=== PATIENT | female | born 1935 | race Caucasian/White ===

== ENCOUNTER 2017-07-15 13:03 | Emergency (ER) | payer BC, MEDICARE ==
[2017-07-15 13:40] LABS: BASO % 0.1 % (0-6); EOS % 2.8 % (0-6); GRAN % 80.2 % (47-80); HEMATOCRIT 39.3 % (35.0-47.0); HEMOGLOBIN 12.3 gm/dl (11.6-16.0); MEAN CELL VOLUME 92.9 fl (81-97); MEAN CORPUSCULAR HEMOGLOBIN 29.1 pg (27-33); MEAN CORPUSCULAR HGB CONC 31.3 g/dl (32-36); MEAN PLATELET VOLUME 10.9 fl (7.4-10.4); MONO % 6.9 % (0-9); PLATELET COUNT 229 K/uL (130-400); RED BLOOD COUNT 4.23 M/uL (3.80-5.40); RED CELL DISTRIBUTION WIDTH 14.6 % (11.5-14.5); WHITE BLOOD COUNT W/O DIFF 7.6 K/uL (4.2-12.2)
--- NOTE | 2017-07-15 13:42 | Emergency Department Record ---
History of Present Illness - General Chief Complaint: Shortness of breath Stated Complaint: JUAN M Time Seen by Provider: 07/15/17 13:16 Source: Patient Mode of Arrival: Wheelchair Limitations: No limitations - History of Present Illness Initial Comments: The patient is here due to JUAN M and SOB for one day. She did have about an hour of mild CP last night but no sweating, nausea or lightheadedness. The patient has an extensive cardiac hx and also of renal failure and is on home PD. She states she recently had a doctor appointment and was told her potassium was very low. MD Complaint: Shortness of breath Onset/Timin -: Days(s) Improves With: Nothing Worsens With: Nothing Associated Symptoms: Cough, Orthopnia Treatments Prior to Arrival: Oxygen - Related Data Home Oxygen Therapy: Yes Home Oxygen Amount: 2 Liters Home Medications Medication Instructions Recorded Confirmed Last Taken Furosemide [Lasix] 40 mg PO DAILY 07/15/17 07/15/17 Unknown Allergies Allergy/AdvReac Type Severity Reaction Status Date / Time No Known Drug Allergies Allergy Verified 07/15/17 13:15 Travel Screening - Travel/Exposure Within Last 30 Days Have you traveled within the last 30 days?: No Past Medical History - SOCIAL HISTORY Smoking Status: Former smoker Alcohol Use: None Drug Use: None - RESPIRATORY Hx Respiratory Disorders: No Comment:: wears home o2 for SOB - CARDIOVASCULAR Hx Cardio Disorders: Yes Hx Cardiac Cath: Yes Hx Heart Attack: Yes (mild [place] >10 years) Hx Hypertension: Yes Comment:: AAA, Cardiac Stent x3 - NEURO Hx Neuro Disorders: No - GI Hx GI Disorders: No Comment:: Galls stones - Hx Genitourinary Disorders: Yes Hx Dialysis: Yes (at home 4 times a day) - ENDOCRINE Hx Endocrine Disorders: No Hx Diabetes: No Hx Thyroid Disease: No - MUSCULOSKELETAL Hx Musculoskeletal Disorders: Yes Hx Arthritis: Yes - PSYCH Hx Psych Problems: No - HEMATOLOGY/ONCOLOGY Hx Hematology/Oncology Disorders: No Family Medical History Any Significant Family History?: Yes Hx Cancer: Children Hx HTN: Mother Hx Stroke: Grandparents Physical Exam - General General Appearance: Alert, Oriented x3, Cooperative, No acute distress - Head Head exam: Atraumatic, Normocephalic, Normal inspection - Eye Eye exam: Normal appearance, PERRL - ENT Throat exam: Normal inspection. negative: Tonsillar erythema, Tonsillar exudate - Neck Neck exam: Normal inspection, Full ROM. negative: Tenderness - Respiratory Respiratory exam: Normal lung sounds bilaterally. negative: Respiratory distress - Cardiovascular Cardiovascular Exam: Regular rate, Normal rhythm, Normal heart sounds - GI/Abdominal GI/Abdominal exam: Soft, Distended, Hypoactive bowel sounds. negative: Normal bowel sounds, Tenderness - Extremities Extremities exam: Normal inspection, Full ROM, Normal capillary refill. negative: Tenderness - Neurological Neurological exam: Alert. negative: Motor sensory deficit Course Vital Signs 07/15/17 13:08 Temperature 97.8 F Pulse Rate 114 H Respiratory 24 Rate Blood Pressure 163/113 Pulse Ox 94 L - Reevaluation(s) Reevaluation #1: The patient is doing very well at this time. She denies any JUAN M or Cp or SOB. 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 Due to that fact she would like to go to [facility] [place]. I did discuss the case with Dr. Vaca and he does accept the patient as a direct admit. 07/15/17 14:36 Medical Decision Making - Data Complexity MDM Data: Labs Ordered and/or Reviewed, X-Ray Ordered and/or Reviewed, EKG Ordered and/or Reviewed - Lab Data Result diagrams: 07/15/17 13:33 07/15/17 13:33 - EKG Data -: EKG Interpreted by Me EKG: No Acute Changes, Unchanged From Previous - Radiology Data Radiology results: Report reviewed (CXR: No acute changes, Old thoracic aneurysm.) Disposition Disposition: Transfer Clinical Impression: CHF (congestive heart failure) Qualifiers: Congestive heart failure type: unspecified Congestive heart failure chronicity : unspecified Qualified Code(s): I50.9 - Heart failure, unspecified Disposition: Acute Care Hospital Transfer Transfer To: [facility] [place] Reason For Transfer: Cardiology Accepting Physician: Lio Time Discussed w/Accepting Physician: 14:38 Condition: (2) Stable Forms: Patient Portal Access Time of Disposition: 14:38 Quality - Quality Measures Quality Measures: N/A - Blood Pressure Screening View Details: Yes Does Patient Have Any of the Following: Active Dx of HTN Blood Pressure Classification: Hypertensive Reading Systolic Measurement: 154 Diastolic Measurement: 95 Screening for High Blood Pressure: Patient Exclusion, Hx of HTN [G9744]
[2017-07-15 13:53] LABS: PARTIAL THROMBOPLASTIN TIME 26.8 SECONDS (24.5-39.1); PROTHROMBIN TIME (PATIENT) 11.2 SECONDS (9.5-12.1)
[2017-07-15 14:01] LABS: CREATININE 2.7 mg/dL (0.5-0.9)
[2017-07-15 14:10] LABS: CKMB 2.5 ng/mL (<3.77)
[2017-07-15] MEDS ORDERED: FUROSEMIDE IV 40MG/4ML VIAL IVP ONE (14:20)
[2017-07-15] MEDS ORDERED: ASPIRIN 325 MG TABLET PO ONE (14:52)
--- NOTE | 2017-07-16 07:36 | RADIOLOGY REPORT ---
EXAM: CHEST, TWO VIEWS HISTORY: DIFFICULTY IN BREATHING. TECHNIQUE: Frontal and lateral views of the chest were performed. FINDINGS: Left sided pacing device in place. There is aneurysmal dilatation of the thoracic aorta. No infiltrate or pleural effusion. IMPRESSION: 1. NO ACUTE PULMONARY DISEASE PROCESS. 2. FINDINGS SUGGESTIVE OF ANEURYSMAL DILATATION OF THE THORACIC AORTA. JOB NUMBER: [id number] MTDD
== END 2017-07-15 15:19 | disposition short-term general hospital (02) ==
LOC: ER 13:03
DX: I13.2 Hypertensive heart and chronic kidney disease with heart failure and with stage 5 chronic kidney disease, or end stage renal disease (principal); I50.9 Heart failure, unspecified; E87.70 Fluid overload, unspecified; N18.6 End stage renal disease; I25.2 Old myocardial infarction; Z99.2 Dependence on renal dialysis; Z87.891 Personal history of nicotine dependence
CPT/HCPCS: 71046; 80048; 82550; 82553; 83880; 84484; 85025; 85610; 85730; 93005; 93010; 96374; 99285; J1940

== ENCOUNTER 2017-11-11 12:29 | Emergency (ER) | payer BC ==
--- NOTE | 2017-11-11 13:07 | Emergency Department Record ---
History of Present Illness - General Chief Complaint: Difficulty Breathing Stated Complaint: JUAN M Time Seen by Provider: 11/11/17 12:57 Mode of Arrival: Wheelchair - History of Present Illness Initial Comments: patient slightly sob and on periteal dialysis was on 4 times a day and change to three times a day and now some edema of the legs and abd and slightly SOB. No chest pain Onset/Timin -: Days(s) Severity: Moderate Severity scale (1-10): 3 Quality: Aching - Related Data Home Oxygen Therapy: Yes (as needed) Allergies Allergy/AdvReac Type Severity Reaction Status Date / Time No Known Drug Allergies Allergy Verified 11/11/17 12:51 Travel Screening - Travel/Exposure Within Last 30 Days Have you traveled within the last 30 days?: No - Travel/Exposure Within Last Year Have you traveled outside the [place] in the last year?: No - Additonal Travel Details Have you been exposed to anyone with a communicable illness?: No - Travel Symptoms Symptom Screening: None Review of Systems Reviewed: No additional complaints except as noted below Constitutional: Reports: As per HPI. Denies: Chills, Fever, Malaise, Night sweats, Weakness, Weight change Eyes: Reports: As per HPI. Denies: Eye discharge, Eye pain, Photophobia, Vision change ENT: Reports: As per HPI. Denies: Congestion, Dental pain, Ear pain, Epistaxis , Hearing loss, Throat pain Respiratory: Reports: As per HPI. Denies: Cough, Dyspnea, Hemoptysis, Stridor, Wheezes Cardiovascular: Reports: As per HPI. Denies: Arrhythmia, Chest pain, Dyspnea on exertion, Edema, Murmurs, Orthopnea, Palpitations, Paroxysmal nocturnal dyspnea, Rheumatic Fever, Syncope Endocrine: Reports: As per HPI. Denies: Fatigue, Heat or cold intolerance, Polydipsia, Polyuria Gastrointestinal: Reports: As per HPI. Denies: Abdominal pain, Constipation, Diarrhea, Hematemesis, Hematochezia, Melena, Nausea, Vomiting Genitourinary: Reports: As per HPI. Denies: Abnormal menses, Discharge, Dyspareunia, Dysuria, Frequency, Hematuria, Incontinence, Retention, Urgency Musculoskeletal: Reports: As per HPI. Denies: Arthralgia, Back pain, Gout, Joint swelling, Myalgia, Neck pain Skin: Reports: As per HPI. Denies: Bruising, Change in color, Change in hair/ nails, Lesions, Pruritus, Rash Neurological: Reports: As per HPI. Denies: Abnormal gait, Confusion, Headache, Numbness, Paresthesias, Seizure, Tingling, Tremors, Vertigo, Weakness Psychiatric: Reports: As per HPI. Denies: Anxiety, Auditory hallucinations, Depression, Homicidal thoughts, Suicidal thoughts, Visual hallucinations Hematological/Lymphatic: Reports: As per HPI. Denies: Anemia, Blood Clots, Easy bleeding, Easy bruising, Swollen glands Past Medical History - SOCIAL HISTORY Smoking Status: Former smoker Alcohol Use: None Drug Use: None - RESPIRATORY Hx Respiratory Disorders: No Comment:: wears home o2 for SOB - CARDIOVASCULAR Hx Cardio Disorders: Yes Hx Cardiac Cath: Yes Hx Heart Attack: Yes (mild [place] >10 years) Hx Hypertension: Yes Comment:: AAA, Cardiac Stent x3 - NEURO Hx Neuro Disorders: No - GI Hx GI Disorders: No Comment:: Galls stones - Hx Genitourinary Disorders: Yes Hx Dialysis: Yes (PD at home 4 times a day) Comment:: 2 liter exchange - ENDOCRINE Hx Endocrine Disorders: No Hx Diabetes: No Hx Thyroid Disease: No - MUSCULOSKELETAL Hx Musculoskeletal Disorders: Yes Hx Arthritis: Yes - PSYCH Hx Psych Problems: No - HEMATOLOGY/ONCOLOGY Hx Hematology/Oncology Disorders: No Family Medical History Any Significant Family History?: Yes Hx Cancer: Children Hx HTN: Mother Hx Stroke: Grandparents Physical Exam - General General Appearance: Alert, Oriented x3, Cooperative, No acute distress - Head Head exam: Normal inspection - Eye Eye exam: Normal appearance, PERRL Pupils: Normal accommodation - ENT ENT exam: Normal exam, Mucous membranes moist, Normal external ear exam, Normal orophraynx, TM's normal bilaterally Ear exam: Normal external inspection. negative: External canal tenderness Nasal Exam: Normal inspection. negative: Discharge, Sinus tenderness Mouth exam: Normal external inspection, Tongue normal Teeth exam: Normal inspection. negative: Dental caries Throat exam: Normal inspection. negative: Tonsillar erythema, Tonsillar exudate - Neck Neck exam: Normal inspection, Full ROM. negative: Tenderness - Respiratory Respiratory exam: Normal lung sounds bilaterally. negative: Respiratory distress - Cardiovascular Cardiovascular Exam: Regular rate, Normal rhythm, Normal heart sounds - GI/Abdominal GI/Abdominal exam: Soft, Normal bowel sounds. negative: Tenderness - Rectal Rectal exam: Deferred - exam: Deferred - Extremities Extremities exam: Normal inspection, Full ROM, Normal capillary refill. negative: Tenderness - Back Back exam: Reports: Normal inspection, Full ROM. Denies: Muscle spasm, Rash noted, Tenderness - Neurological Neurological exam: Alert, Normal gait, Oriented X3, Reflexes normal - Psychiatric Psychiatric exam: Normal affect, Normal mood - Skin Skin exam: Dry, Intact, Normal color, Warm Course Vital Signs 11/11/17 12:38 Temperature 97.5 F L Pulse Rate 106 H Respiratory 22 Rate Blood Pressure 148/103 Pulse Ox 94 L - Reevaluation(s) Reevaluation #1: discussed case with Dr. brown and will increase her dialysis to 2.5% three times a day and call the dialysis unit tomorrow for advise. 11/11/17 14:38 Medical Decision Making - Data Complexity MDM Data: Labs Ordered and/or Reviewed, X-Ray Ordered and/or Reviewed - Lab Data Result diagrams: 11/11/17 13:25 11/11/17 13:25 Disposition Clinical Impression: Renal failure (ARF), acute on chronic Qualifiers: Acute renal failure type: unspecified Chronic kidney disease stage: on chronic dialysis Qualified Code(s): N17.9 - Acute kidney failure, unspecified Disposition: Home, Self-Care Condition: (1) Good Instructions: Chronic Kidney Disease (ED) Additional Instructions: Use 2.5 % dialysis bags and call the kidney unit tomorrow to get advise on her fluid retention Forms: Patient Portal Access Time of Disposition: 14:43 Quality - Quality Measures Quality Measures: N/A - Blood Pressure Screening Does Patient Have Any of the Following: No, Active Dx of HTN Blood Pressure Classification: Hypertensive Reading Systolic Measurement: 148 Diastolic Measurement: 103 Screening for High Blood Pressure: Patient Exclusion, Hx of HTN [G9744]
[2017-11-11 13:30] LABS: HEMATOCRIT 36.7 % (35.0-47.0); HEMOGLOBIN 11.9 gm/dl (11.6-16.0); MEAN CELL VOLUME 95.6 fl (81-97); MEAN CORPUSCULAR HGB CONC 32.4 g/dl (32-36); MEAN PLATELET VOLUME 10.4 fl (7.4-10.4); PLATELET COUNT 206 K/uL (130-400); RED BLOOD COUNT 3.84 M/uL (3.80-5.40); RED CELL DISTRIBUTION WIDTH 14.3 % (11.5-14.5); WHITE BLOOD COUNT W/O DIFF 8.2 K/uL (4.2-12.2)
[2017-11-11 13:42] LABS: CREATININE 3.3 mg/dL (0.5-0.9)
--- NOTE | 2017-11-12 14:45 | RADIOLOGY REPORT ---
EXAM: CHEST, TWO VIEWS HISTORY: SHORTNESS OF BREATH. TECHNIQUE: Frontal and lateral views of the chest were obtained. Comparison: 07/15/17 chest. FINDINGS: Cardiomegaly. Ectasia of the thoracic aorta. Left sided pacing device. No pneumothorax. Small bilateral effusions. Osteopenia. IMPRESSION: CARDIOMEGALY. SMALL BILATERAL EFFUSIONS. JOB NUMBER: [id number] MTDD
== END 2017-11-11 14:58 | disposition home or self-care (01) ==
LOC: ER 12:29
DX: I12.0 Hypertensive chronic kidney disease with stage 5 chronic kidney disease or end stage renal disease (principal); N18.6 End stage renal disease; N17.9 Acute kidney failure, unspecified; R06.02 Shortness of breath; I25.2 Old myocardial infarction; Z99.2 Dependence on renal dialysis; Z87.891 Personal history of nicotine dependence
CPT/HCPCS: 71046; 80048; 83735; 85027; 99283; 99284

== ENCOUNTER 2018-01-12 11:15 | Emergency (ER) | payer BC ==
[2018-01-12] MEDS ORDERED: ACETAMINOPHEN 325 MG TAB PO ONE (11:31)
--- NOTE | 2018-01-12 11:35 | Emergency Department Record ---
History of Present Illness - General Chief Complaint: Fall Injury Stated Complaint: RIGHT SIDED RIB PAIN / FALL Time Seen by Provider: 01/12/18 11:27 Source: Patient Mode of Arrival: Ambulatory Limitations: No limitations - History of Present Illness Initial Comments: The patient is here due to a fall yesterday at home. She states she tripped while walking and landed on her R chest and shoulder. Since she has had R chest , rib and shoulder pain. There is no hx of a head injury, head trauma, neck pain or AP. The patient is much worse with any movement. MD Complaint: Fall Onset/Timin -: Days(s) Fall Witnessed: Yes, by family Place Fall Occurred: Home Loss of Consciousness: None Prolonged Down Time?: No Symptoms Prior to Fall: None Severity: Moderate Severity scale (1-10): 10 Quality: Aching - [place] Coma Scale Eye Response: (4) Open spontaneously Motor Response: (6) Obeys commands Verbal Response: (5) Oriented [place] Total: 15 - Related Data Previous Rx's Medication Instructions Recorded Acetaminop W/ Codeine 300/30Mg 1 tab PO Q6H #12 tab 01/12/18 [Tylenol #3] Lidocaine Patch [Lidoderm] 1 ea TOP DAILY #10 patch 01/12/18 Ondansetron [Zofran Odt] 4 mg SL .Q4-6H PRN #12 tab.rapdis 01/12/18 Allergies Allergy/AdvReac Type Severity Reaction Status Date / Time No Known Drug Allergies Allergy Verified 01/12/18 11:25 Travel Screening - Travel/Exposure Within Last 30 Days Have you traveled within the last 30 days?: No - Travel/Exposure Within Last Year Have you traveled outside the [place] in the last year?: No - Additonal Travel Details Have you been exposed to anyone with a communicable illness?: No - Travel Symptoms Symptom Screening: None Review of Systems Constitutional: Denies: Chills, Fever Eyes: Denies: Eye discharge ENT: Denies: Congestion Respiratory: Denies: Cough, Dyspnea Cardiovascular: Denies: Arrhythmia Endocrine: Reports: Fatigue Gastrointestinal: Denies: Abdominal pain Genitourinary: Denies: Dysuria Musculoskeletal: Denies: Back pain Skin: Denies: Bruising Neurological: Denies: Confusion Past Medical History - SOCIAL HISTORY Smoking Status: Former smoker Alcohol Use: None Drug Use: None - RESPIRATORY Hx Respiratory Disorders: No Comment:: wears home o2 for SOB - CARDIOVASCULAR Hx Cardio Disorders: Yes Hx Cardiac Cath: Yes Hx Heart Attack: Yes (mild [place] >10 years) Hx Hypertension: Yes Comment:: AAA, Cardiac Stent x3 - NEURO Hx Neuro Disorders: Yes Hx CVA: Yes (left visual) - GI Hx GI Disorders: No Comment:: Galls stones - Hx Genitourinary Disorders: Yes Hx Dialysis: Yes (PD at home 4 times a day) Comment:: 2 liter exchange - ENDOCRINE Hx Endocrine Disorders: No Hx Diabetes: No Hx Thyroid Disease: No - MUSCULOSKELETAL Hx Musculoskeletal Disorders: Yes Hx Arthritis: Yes - PSYCH Hx Psych Problems: No - HEMATOLOGY/ONCOLOGY Hx Hematology/Oncology Disorders: No Family Medical History Any Significant Family History?: Yes Hx Cancer: Children Hx HTN: Mother Hx Stroke: Grandparents Physical Exam - General General Appearance: Alert, Oriented x3, Cooperative, No acute distress - Head Head exam: Atraumatic, Normocephalic, Normal inspection - Eye Eye exam: Normal appearance, PERRL, EOMI - Neck Neck exam: Normal inspection, Full ROM. negative: Tenderness (There is no Cspine tenderness.) - Respiratory Respiratory exam: Normal lung sounds bilaterally, Chest wall tenderness - Cardiovascular Cardiovascular Exam: Regular rate, Normal rhythm, Normal heart sounds - GI/Abdominal GI/Abdominal exam: Soft, Normal bowel sounds. negative: Tenderness - Extremities Extremities exam: Normal inspection, Full ROM, Normal capillary refill. negative: Tenderness Image of Full Body: 1 - Area of pain and tenderness. - Back Back exam: Reports: Normal inspection - Neurological Neurological exam: Alert. negative: Motor sensory deficit Course Vital Signs 01/12/18 11:19 Temperature 97.8 F Pulse Rate 106 H Respiratory 18 Rate Blood Pressure 144/97 Pulse Ox 95 - Reevaluation(s) Reevaluation #1: The patient is doing well at this time. She does still have R rib pain but only with movement and twisting. I did discuss the chest CT report with her and the fact that she has a large thoracic aneurysm present that probably is not significantly different from 6 months ago. The patient does have an appointment with her Thoracic Surgeon Dr. Burrows in 2 weeks and will bring the CT disc with her there. I also did consult Dr. Burrows and he states he is aware of the thoracic aneurysm and has been waiting for it to exceed 6 cm in greatest diameter. He states that on his last exam it was just under 6 cm. He believes the patient is stable for discharge and he will see her in the office as planned. 01/12/18 13:30 Medical Decision Making - Data Complexity MDM Data: X-Ray Ordered and/or Reviewed - Radiology Data Radiology results: Report reviewed (R shoulder: Neg Chest CT: 6.2 cm thoracic aneurysm, No sig change from old. Prob R subtle nondisplaced rib fx T5.) Disposition Disposition: Discharge Clinical Impression: Rib fracture Qualifiers: Encounter type: initial encounter Rib fracture type: single rib Fracture type: closed Laterality: right Qualified Code(s): S22.31XA - Fracture of one rib, right side, initial encounter for closed fracture Disposition: Home, Self-Care Condition: (2) Stable Instructions: Rib Fracture (ED), Fall Prevention for Older Adults (ED) Additional Instructions: Please take Tylenol # 3 and Zofran as directed and also use the pain patches. Please see your family doctor for recheck in 3 days if not better. Please keep your appointment with Dr. Burrows for later this month. Return to the ER for any worsening symptoms. Prescriptions: Acetaminop W/ Codeine 300/30Mg [Tylenol #3] 1 tab PO Q6H #12 tab Lidocaine Patch [Lidoderm] 1 ea TOP DAILY #10 patch Ondansetron [Zofran Odt] 4 mg SL .Q4-6H PRN #12 tab.rapdis PRN Reason: Nausea Forms: Patient Portal Access Time of Disposition: 13:36 Quality - Quality Measures Quality Measures: N/A - Blood Pressure Screening View Details: Yes Does Patient Have Any of the Following: No Blood Pressure Classification: Hypertensive Reading Systolic Measurement: 144 Diastolic Measurement: 97 Screening for High Blood Pressure: < First Hypertensive BP, F/U Documented > [ [id number]] First Hypertensive Follow-up Interventions: Referral to alternative/primary care provider.
[2018-01-12] MEDS ORDERED: LIDOCAINE 5% PATCH TOP ONE (12:51)
--- NOTE | 2018-01-14 10:17 | RADIOLOGY REPORT ---
EXAM: RIGHT SHOULDER HISTORY: RIGHT SHOULDER PAIN STATUS POST FALL. TECHNIQUE: Three views of the right shoulder were obtained. Comparison: None. Encounter: Initial. FINDINGS: The bones are diffusely osteopenic, but appear intact. There is no visible acute fracture or dislocation. There are minor arthritic changes of the acromioclavicular joint and glenoid. The visualized ribs appear intact. IMPRESSION: 1. NO ACUTE SHOULDER PATHOLOGY. 2. DIFFUSE OSTEOPENIA AND MILD ARTHRITIC CHANGES. JOB NUMBER: [id number] MTDD
--- NOTE | 2018-01-14 10:32 | CT SCAN REPORT ---
DATE: 01/12/2018 at 11:52 a.m. EXAM: CT SCAN OF THE CHEST WITHOUT CONTRAST. HISTORY: Right rib pain anteriorly. Right shoulder pain. Status post fall. Peritoneal dialysis. TECHNIQUE: Standard CT imaging of the chest was performed in the axial plane without contrast. Additional coronal and sagittal reformatted images were also performed. COMPARISON: Previous chest x-ray dated 11/11/2017. ENCOUNTER: Initial. FINDINGS: The heart is mildly enlarged. Pacemaker leads are present. There are coronary artery calcifications. The ascending aorta measures up to 4.3 cm in diameter. There is aneurysmal dilatation of the distal aortic arch originating just distal to the left subclavian artery and involving the proximal descending thoracic aorta. The aneurysm measures up to 6.2 cm in diameter. This appears similar to the previous chest x-ray. The remainder of the ascending thoracic aorta is ectatic. There is no evidence for aortic rupture. There is no mediastinal or hilar lymphadenopathy. There are no acute pulmonary infiltrates. There is no pneumothorax or effusion. There is mild atelectasis or scarring within both lungs. There is a subtle, nondisplaced fracture involving the anterior aspect of the right fifth rib. No other discrete fractures are visible. Degenerative changes are present within the spine. There is large-volume ascites. A small amount of extraluminal air is present within the right upper quadrant. This is likely secondary to peritoneal dialysis. A few calcified stones are present within the gallbladder lumen. There is no biliary ductal dilatation. There is a stable peripherally calcified mass-like area adjacent to the pancreatic neck. This may represent a calcified lymph node or calcified pancreatic lesion. This is unchanged from the previous examination. The patient is status post abdominal aortic aneurysm repair which is only partially visualized on this examination. IMPRESSION: 1. NO ACUTE INTRATHORACIC PATHOLOGY. 2. SUBTLE, NONDISPLACED FRACTURE INVOLVING THE ANTERIOR ASPECT OF THE RIGHT FIFTH RIB. 3. THORACIC AORTIC ANEURYSM INVOLVING THE DISTAL AORTIC ARCH AND PROXIMAL DESCENDING AORTA AND MEASURING UP TO 6.2 CM IN DIAMETER. THERE IS NO EVIDENCE FOR RUPTURE. 4. LARGE-VOLUME ASCITES. 5. THERE IS A SMALL COLLECTION OF FREE AIR WITHIN THE ASCITES FLUID OF THE RIGHT UPPER QUADRANT WHICH IS LIKELY INCIDENTAL TO PERITONEAL DIALYSIS. 6. CHOLELITHIASIS WITH NO EVIDENCE FOR ACUTE CHOLECYSTITIS. 7. STABLE RIM CALCIFIED MASS ADJACENT TO THE PANCREATIC NECK. JOB NUMBER: [id number] [facility]
== END 2018-01-12 13:50 | disposition home or self-care (01) ==
LOC: ER 11:15
DX: S22.31XA Fracture of one rib, right side, initial encounter for closed fracture (principal); I71.2 Thoracic aortic aneurysm, without rupture; M25.511 Pain in right shoulder; W01.10XA Fall on same level from slipping, tripping and stumbling with subsequent striking against unspecified object, initial encounter; Y92.009 Unspecified place in unspecified non-institutional (private) residence as the place of occurrence of the external cause; I10 Essential (primary) hypertension; I25.2 Old myocardial infarction; Z87.891 Personal history of nicotine dependence
CPT/HCPCS: 71250; 99283; 99284

== ENCOUNTER 2018-03-19 13:48 | Emergency (ER) | payer BC ==
[2018-03-19] MEDS: ONDANSETRON HCL IV 4 MG/2 ML VIAL IVP ONE (14:34)
[2018-03-19] MEDS: MORPHINE SULFATE 10 MG/ML VIAL IVP ONE ×2 (14:34→16:20)
--- NOTE | 2018-03-19 15:02 | Emergency Department Record ---
History of Present Illness - General Chief Complaint: Fall Injury Stated Complaint: lt side pain/fall Time Seen by Provider: 03/19/18 14:12 Source: Patient Mode of Arrival: Wheelchair Limitations: No limitations - History of Present Illness Initial Comments: pt states she fell 2 days ago against a table. she states that her l ribs still hurt and get worse w inspiration. she has peritoneal dialysis MD Complaint: Fall Onset/Timin -: Days(s) Fall From: Standing Fall Witnessed: No Place Fall Occurred: Home Loss of Consciousness: None Prolonged Down Time?: No Symptoms Prior to Fall: None Location: Chest, Back Associated Symptoms: Denies - Joseph Coma Scale Eye Response: (4) Open spontaneously Motor Response: (6) Obeys commands Verbal Response: (5) Oriented [place] Total: 15 - Related Data Previous Rx's Medication Instructions Recorded Acetaminop W/ Codeine 300/30Mg 1 tab PO Q6H #12 tab 01/12/18 [Tylenol #3] Hydrocodone/Acetaminophen [[place] 0.5 - 1 tab PO TID PRN #10 tab 03/19/18 5mg/325mg] Ondansetron [Zofran Odt] 4 mg PO Q8H #7 tab.rapdis 03/19/18 Allergies Allergy/AdvReac Type Severity Reaction Status Date / Time No Known Drug Allergies Allergy Verified 03/19/18 13:54 Travel Screening - Travel/Exposure Within Last 30 Days Have you traveled within the last 30 days?: No Review of Systems Reviewed: No additional complaints except as noted below Constitutional: Reports: As per HPI. Denies: Chills, Fever, Malaise, Night sweats, Weakness, Weight change Eyes: Reports: As per HPI. Denies: Eye discharge, Eye pain, Photophobia, Vision change ENT: Reports: As per HPI. Denies: Congestion, Dental pain, Ear pain, Epistaxis , Hearing loss, Throat pain Respiratory: Reports: As per HPI. Denies: Cough, Dyspnea, Hemoptysis, Stridor, Wheezes Cardiovascular: Reports: As per HPI. Denies: Arrhythmia, Chest pain, Dyspnea on exertion, Edema, Murmurs, Orthopnea, Palpitations, Paroxysmal nocturnal dyspnea, Rheumatic Fever, Syncope Endocrine: Reports: As per HPI. Denies: Fatigue, Heat or cold intolerance, Polydipsia, Polyuria Gastrointestinal: Reports: As per HPI. Denies: Abdominal pain, Constipation, Diarrhea, Hematemesis, Hematochezia, Melena, Nausea, Vomiting Genitourinary: Reports: As per HPI. Denies: Abnormal menses, Discharge, Dyspareunia, Dysuria, Frequency, Hematuria, Incontinence, Retention, Urgency Musculoskeletal: Reports: As per HPI. Denies: Arthralgia, Back pain, Gout, Joint swelling, Myalgia, Neck pain Skin: Reports: As per HPI. Denies: Bruising, Change in color, Change in hair/ nails, Lesions, Pruritus, Rash Neurological: Reports: As per HPI. Denies: Abnormal gait, Confusion, Headache, Numbness, Paresthesias, Seizure, Tingling, Tremors, Vertigo, Weakness Psychiatric: Reports: As per HPI. Denies: Anxiety, Auditory hallucinations, Depression, Homicidal thoughts, Suicidal thoughts, Visual hallucinations Hematological/Lymphatic: Reports: As per HPI. 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) Hx Hypertension: Yes Comment:: AAA, Cardiac Stent x3 - NEURO Hx Neuro Disorders: Yes Hx CVA: Yes (left visual) - GI Hx GI Disorders: No Comment:: Galls stones - Hx Genitourinary Disorders: Yes Hx Dialysis: Yes (PD at home 4 times a day) Comment:: 2 liter exchange - ENDOCRINE Hx Endocrine Disorders: No Hx Diabetes: No Hx Thyroid Disease: No - MUSCULOSKELETAL Hx Musculoskeletal Disorders: Yes Hx Arthritis: Yes - PSYCH Hx Psych Problems: No - HEMATOLOGY/ONCOLOGY Hx Hematology/Oncology Disorders: No Family Medical History Any Significant Family History?: Yes Hx Cancer: Children Hx HTN: Mother Hx Stroke: Grandparents Physical Exam - General General Appearance: Alert, Oriented x3, Cooperative, Mild distress - Head Head exam: Normal inspection - Eye Eye exam: Normal appearance, PERRL, EOMI Pupils: Normal accommodation - ENT ENT exam: Normal exam, Mucous membranes moist, Normal external ear exam, Normal orophraynx Ear exam: Normal external inspection. negative: External canal tenderness Nasal Exam: Normal inspection. negative: Discharge, Sinus tenderness Mouth exam: Normal external inspection, Tongue normal Teeth exam: Normal inspection. negative: Dental caries Throat exam: Normal inspection. negative: Tonsillar erythema, Tonsillar exudate - Neck Neck exam: Normal inspection, Full ROM. negative: Tenderness - Respiratory Respiratory exam: Normal lung sounds bilaterally, Chest wall tenderness. negative: Respiratory distress - Cardiovascular Cardiovascular Exam: Regular rate, Normal rhythm, Normal heart sounds - GI/Abdominal GI/Abdominal exam: Soft, Normal bowel sounds. negative: Tenderness - Rectal Rectal exam: Deferred - exam: Deferred - Extremities Extremities exam: Normal inspection, Full ROM, Normal capillary refill, Other ( l ribs and talkback host). negative: Tenderness - Back Back exam: Reports: Normal inspection, Full ROM. Denies: Muscle spasm, Rash noted, Tenderness - Neurological Neurological exam: Alert, CN II-XII intact, Normal gait, Oriented X3 - Psychiatric Psychiatric exam: Normal affect, Normal mood - Skin Skin exam: Dry, Intact, Normal color, Warm Course Vital Signs 03/19/18 13:54 Temperature 97.4 F L Pulse Rate 75 Respiratory 18 Rate Blood Pressure 119/74 Pulse Ox 96 - Reevaluation(s) Reevaluation #1: 03/19/18 16:50 pt offered admission and refused Disposition Disposition: Discharge Clinical Impression: Ribs, multiple fractures Qualifiers: Encounter type: initial encounter Fracture type: closed Laterality: right Qualified Code(s): S22.41XA - Multiple fractures of ribs, right side, initial encounter for closed fracture Condition: (1) Good Instructions: Fall Prevention for Older Adults (ED), Rib Fracture (ED) Additional Instructions: follow up with family doctor. return sooner if worse. ice to ribs every 4 hours. deep inspiration 5x an hour Prescriptions: Hydrocodone/Acetaminophen [[place] 5mg/325mg] 0.5 - 1 tab PO TID PRN #10 tab PRN Reason: Pain - General Ondansetron [Zofran Odt] 4 mg PO Q8H #7 tab.rapdis Quality - Quality Measures Quality Measures: N/A - Blood Pressure Screening Does Patient Have Any of the Following: No Blood Pressure Classification: Normal BP Reading Systolic Measurement: 119 Diastolic Measurement: 74 Screening for High Blood Pressure: < Normal BP, F/U Not Required > [G8783]
--- NOTE | 2018-03-20 14:17 | CT SCAN REPORT ---
EXAM: CT OF THE CHEST WITHOUT CONTRAST HISTORY: FALL. TECHNIQUE: Sequential axial images were obtained from the thoracic inlet through the bilateral adrenal glands without intravenous contrast administration. Sagittal and coronal reformatted images were performed. Comparison: 01/12/18. FINDINGS: There is stable aneurysmal dilatation of the distal aortic arch just distal to the left subclavian artery and extending into the proximal descending thoracic aorta. This measures 6.2 cm in maximal AP dimension. No change in size or appearance when compared to the prior exam. There is coronary artery vascular calcification. Cardiomegaly without pericardial effusion. Small pleural effusions. Minimal ground glass opacities in the lung bases. There is thickening of the intralobular receptor in the right lung base. There is abdominal ascites in the visualized upper abdomen. The osseous structures are normal. There are nondisplaced left lateral sixth, seventh and eighth rib fracture deformities. IMPRESSION: 1. NONDISPLACED LEFT LATERAL SIXTH, SEVENTH AND EIGHTH RIB FRACTURE DEFORMITIES. 2. SMALL PLEURAL EFFUSIONS. 3. CARDIOMEGALY WITHOUT PERICARDIAL EFFUSION. SIGNIFICANT CORONARY ARTERY VASCULAR CALCIFICATION. STABLE ANEURYSMAL DILATATION OF THE AORTIC ARCH AND PROXIMAL DESCENDING THORACIC AORTA MEASURING 6.2 CM IN MAXIMAL DIMENSION. JOB NUMBER: [id number] [facility]
--- NOTE | 2018-03-21 09:49 | CT SCAN REPORT ---
EXAM: CT OF THE ABDOMEN WITHOUT CONTRAST HISTORY: FALL. TECHNIQUE: Sequential axial images were obtained from the diaphragm through the ischiorectal fossa without intravenous or oral contrast administration. FINDINGS: There is a small amount of abdominal ascites present. There is gallbladder distention with cholelithiasis. There is extensive vascular calcification. There is an abdominal aortic stent graft in place. Lack of contrast limits evaluation. The adrenal glands appear normal. The kidneys are atrophic. The pancreas and spleen appear normal. The small bowel appears normal. There is osteopenia. No compression fracture deformity. IMPRESSION: 1. MODERATE AMOUNT OF ABDOMINAL AND PELVIC ASCITES. 2. DISTENDED GALLBLADDER WITH CHOLELITHIASIS. 3. 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 4. INFRARENAL ABDOMINAL AORTIC STENT GRAFT IN PLACE. 5. NO OSSEOUS ABNORMALITIES. UNDERLYING OSTEOPENIA. JOB NUMBER: [id number] [facility]
== END 2018-03-19 17:16 | disposition home or self-care (01) ==
LOC: ER 13:48
DX: S22.41XA Multiple fractures of ribs, right side, initial encounter for closed fracture (principal); W01.190A Fall on same level from slipping, tripping and stumbling with subsequent striking against furniture, initial encounter; Y92.009 Unspecified place in unspecified non-institutional (private) residence as the place of occurrence of the external cause; I10 Essential (primary) hypertension; I25.2 Old myocardial infarction; Z87.891 Personal history of nicotine dependence; E87.6 Hypokalemia
CPT/HCPCS: 99284 ×2; 96376; 96374; 96375; 84132; 74150; 71250; 94010; J2405; J2270

== ENCOUNTER 2018-03-31 13:43 | Emergency (ER) | payer BC ==
--- NOTE | 2018-03-31 14:35 | Emergency Department Record ---
History of Present Illness - General Chief Complaint: Difficulty Breathing Stated Complaint: BREATHING ISSUE/SWOLLEN ANKLES ON DIALYSIS Time Seen by Provider: 03/31/18 14:27 Source: Patient Mode of Arrival: Wheelchair Limitations: No limitations - History of Present Illness Initial Comments: The patient is here due to a worsening cough with SOB for 3-4 days. There is no hx of fever or sputum production. 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 She is a peritoneal dialysis patient and does 3 exchanges daily. Additionally she has had lower leg and feet swelling. MD Complaint: Cough, Shortness of breath Onset/Timin -: Days(s) Consistency: Getting worse Improves With: Rest Worsens With: Coughing Known History Of: Other Associated Symptoms: Cough, Edema - Related Data Home Oxygen Therapy: Yes Home Oxygen Amount: 3 Liters Previous Rx's Medication Instructions Recorded Acetaminop W/ Codeine 300/30Mg 1 tab PO Q6H #12 tab 01/12/18 [Tylenol #3] Allergies Allergy/AdvReac Type Severity Reaction Status Date / Time No Known Drug Allergies Allergy Verified 03/31/18 14:13 Travel Screening - Travel/Exposure Within Last 30 Days Have you traveled within the last 30 days?: No - Travel/Exposure Within Last Year Have you traveled outside the [place] in the last year?: No - Additonal Travel Details Have you been exposed to anyone with a communicable illness?: No - Travel Symptoms Symptom Screening: None Review of Systems Constitutional: Denies: Chills, Fever Eyes: Denies: Eye discharge ENT: Reports: Congestion Respiratory: Reports: Cough, Dyspnea Cardiovascular: Denies: Arrhythmia, Chest pain Endocrine: Reports: Fatigue Gastrointestinal: Denies: Abdominal pain, Nausea, Vomiting, Other Genitourinary: Denies: Dysuria Musculoskeletal: Denies: Back pain Skin: Denies: Bruising Past Medical History - SOCIAL HISTORY Smoking Status: Former smoker Alcohol Use: None Drug Use: None - RESPIRATORY Hx Respiratory Disorders: No Comment:: wears home o2 for SOB - CARDIOVASCULAR Hx Cardio Disorders: Yes Hx Cardiac Cath: Yes Hx Heart Attack: Yes (mild [place] >10 years) Hx Hypertension: Yes Comment:: AAA, Cardiac Stent x3 - NEURO Hx Neuro Disorders: Yes Hx CVA: Yes (left visual) - GI Hx GI Disorders: No Comment:: Galls stones - Hx Genitourinary Disorders: Yes Hx Dialysis: Yes (PD at home 4 times a day) Comment:: 2 liter exchange - ENDOCRINE Hx Endocrine Disorders: No Hx Diabetes: No Hx Thyroid Disease: No - MUSCULOSKELETAL Hx Musculoskeletal Disorders: Yes Hx Arthritis: Yes - PSYCH Hx Psych Problems: No - HEMATOLOGY/ONCOLOGY Hx Hematology/Oncology Disorders: No Family Medical History Any Significant Family History?: Yes Hx Cancer: Children Hx HTN: Mother Hx Stroke: Grandparents Physical Exam - General General Appearance: Alert, Oriented x3, Cooperative, No acute distress - Head Head exam: Atraumatic, Normocephalic, Normal inspection - Eye Eye exam: Normal appearance, PERRL - ENT Throat exam: Normal inspection. negative: Tonsillar erythema, Tonsillar exudate - Neck Neck exam: Normal inspection, Full ROM. negative: Tenderness - Respiratory Respiratory exam: Decreased breath sounds (at the bases.). negative: Normal lung sounds bilaterally, Accessory muscle use - Cardiovascular Cardiovascular Exam: Regular rate, Normal rhythm, Normal heart sounds - GI/Abdominal GI/Abdominal exam: Soft, Normal bowel sounds. negative: Tenderness - Extremities Extremities exam: Pedal edema (1+ and equal bilaterally.). negative: Normal inspection - Back Back exam: Reports: Normal inspection, Full ROM. Denies: Muscle spasm, Rash noted, Tenderness - Neurological Neurological exam: Alert. negative: Motor sensory deficit Course Vital Signs 03/31/18 14:15 Temperature 97.6 F Pulse Rate 84 Respiratory 18 Rate Blood Pressure 124/82 Pulse Ox 94 L - Reevaluation(s) Reevaluation #1: I did discuss the issues with the patient and the need for hospital admission. Due to her renal findings and the aneurysm I do feel the best course of action is to admit the patient to [facility] [place] and she does agree. There she can see her kidney specialists and thoracic surgeon. 03/31/18 16:04 Reevaluation #2: I did discuss the case with Dr. Vitale at [facility] [place] [facility] and she does accept the patient in transfer. 03/31/18 16:42 Medical Decision Making - Data Complexity MDM Data: Labs Ordered and/or Reviewed, X-Ray Ordered and/or Reviewed, EKG Ordered and/or Reviewed - Lab Data Result diagrams: 03/31/18 15:00 03/31/18 15:00 - EKG Data -: EKG Interpreted by Me EKG: No Acute Changes, Unchanged From Previous - Radiology Data Radiology results: Report reviewed (CXR: Bilateral infiltrates with large L thoracic aneurysm.) Disposition Disposition: Transfer Clinical Impression: Pneumonia Qualifiers: Pneumonia type: due to unspecified organism Laterality: unspecified laterality Lung location: unspecified part of lung Qualified Code(s): J18.9 - Pneumonia, unspecified organism Disposition: Acute Care Hospital Transfer Transfer To: [facility] [place] Reason For Transfer: Renal Failure Accepting Physician: Winifred Time Discussed w/Accepting Physician: 16:44 Forms: Patient Portal Access Time of Disposition: 16:44 Quality - Quality Measures Quality Measures: N/A - Blood Pressure Screening View Details: Yes Does Patient Have Any of the Following: No Blood Pressure Classification: Normal BP Reading Systolic Measurement: 113 Diastolic Measurement: 77 Screening for High Blood Pressure: < Normal BP, F/U Not Required > [G8783]
[2018-03-31 15:09] LABS: BASO % 0.2 % (0-6); EOS % 3.8 % (0-6); GRAN % 78.5 % (47-80); HEMATOCRIT 35.7 % (35.0-47.0); HEMOGLOBIN 11.5 gm/dl (11.6-16.0); MEAN CELL VOLUME 96.2 fl (81-97); MEAN CORPUSCULAR HEMOGLOBIN 30.9 pg (27-33); MEAN CORPUSCULAR HGB CONC 32.2 g/dl (32-36); MEAN PLATELET VOLUME 11.3 fl (7.4-10.4); MONO % 8.5 % (0-9); PLATELET COUNT 168 K/uL (130-400); RED BLOOD COUNT 3.71 M/uL (3.80-5.40); RED CELL DISTRIBUTION WIDTH 14.9 % (11.5-14.5); WHITE BLOOD COUNT W/O DIFF 8.9 K/uL (4.2-12.2)
[2018-03-31 15:21] LABS: CREATININE 4.4 mg/dL (0.5-0.9)
[2018-03-31 15:29] LABS: CKMB 2.2 ng/mL (<3.77)
[2018-03-31] MEDS ORDERED: CEFTRIAXONE SODIUM 1 GM in 0.9 % SODIUM CHLORIDE 100ML 100 ML IVPB ONE (15:50)
[2018-03-31] MEDS ORDERED: FUROSEMIDE IV 40MG/4ML VIAL IVP ONE (16:19)
[2018-03-31] MEDS ORDERED: IPRATROPIUM/ALBUTEROL (0.5MG/3MG) NEB INH ONE (19:32)
--- NOTE | 2018-04-02 06:26 | RADIOLOGY REPORT ---
DATE: 03/31/2018. EXAM: CHEST TWO VIEW. HISTORY: DYSPNEA, COUGH. TECHNIQUE: Two views of the chest. FINDINGS: There is a left-sided chest pacemaker in place. The cardiomediastinal silhouette appears stable when compared to recent 03/19/2018 CT examination. There is a large, saccular aneurysm involving the aortic arch and descending aorta. It measures approximately 6.0 x 5.5 cm. There is patchy bilateral air space disease within the right upper lobe and both lung bases. There is a small left and a possible trace right effusion. IMPRESSION: 1. INTERVAL DEVELOPMENT OF BILATERAL INFILTRATES. SMALL LEFT AND POSSIBLE TRACE RIGHT EFFUSION. 2. A LARGE SACCULAR ANEURYSM INVOLVING THE AORTIC ARCH. THIS APPEARS OVERALL SIMILAR COMPARED TO RECENT CT EXAMINATION. JOB NUMBER: [id number] [facility]
== END 2018-03-31 19:42 | disposition short-term general hospital (02) ==
LOC: ER 13:43
DX: J18.9 Pneumonia, unspecified organism (principal); N18.6 End stage renal disease; I71.2 Thoracic aortic aneurysm, without rupture; I50.9 Heart failure, unspecified; I10 Essential (primary) hypertension; I25.2 Old myocardial infarction; Z99.2 Dependence on renal dialysis; Z87.891 Personal history of nicotine dependence
CPT/HCPCS: 71046; 80048; 82550; 82553; 83880; 85025; 93005; 93010; 94640; 96365; 96375; 99285; J1940